=== PATIENT | female | born 2000 | race American Indian/Alaskan Native ===

== ENCOUNTER 2018-10-17 11:14 | Emergency (ER) | payer OTHER ==
[2018-10-17 11:22] VITALS: BP 148/88
--- NOTE | 2018-10-17 11:23 | Event Note ---
ED Screening Note Date of service: 10/17/18 Time: 11:21 ED Screening Note: 18 y/o female comes in for vaginal discharge time 1 week. Has a new sexually partner and wants to get STD check. This initial assessment/diagnostic orders/clinical plan/treatment(s) is/are subject to change based on patients health status, clinical progression and re- assessment by fellow clinical providers in the ED. Further treatment and workup at subsequent clinical providers discretion. Patient/guardian urged not to elope from the ED as their condition may be serious if not clinically assessed and managed. Initial orders include:
[2018-10-17 12:07] LABS: HCG Qualitative,Urine Negative (Negative)
[2018-10-17 12:09] LABS: Bilirubin,Urine NEG (Negative); Blood,Urine NEG (Negative); Color,Urine Yellow (Yellow); Mucus,Urine FEW /HPF; Protein,Urine <15 mg/dL mg/dL (Negative); Urobilinogen,Urine < 2.0 mg/dL (<2.0)
[2018-10-17] MEDS ORDERED: ROCEPHIN IM ONE (12:20)
[2018-10-17] MEDS ORDERED: ZITHROMAX PO ONE (12:20)
[2018-10-17] MEDS ORDERED: XYLOCAINE 1% MPF 5 mL INFILTRATI ONE (12:20)
--- NOTE | 2018-10-17 12:35 | Emergency Department Report ---
Chief Complaint: Urogenital-Female Stated Complaint: STD TESTING Time Seen by Provider: 10/17/18 11:20 - HPI History of Present Illness: This is a 18-year-old female who presents to the ED complaining of been exposed to chlamydia. Patient states that she has multiple sexual partners with both female and male. Patient states she was recently sexually active. Patient denies dysuria, pelvic pain. Patient states she does have a mild vaginal discharge. She denies fevers chills nausea vomiting. Patient states he treated - ROS Review of Systems: As noted in HPI - Exam Vital Signs: Vital Signs 10/17/18 11:20 Temperature 98.6 F Pulse Rate 109 H Respiratory 16 Rate Blood Pressure 148/88 O2 Sat by Pulse 98 Oximetry Physical Exam: Gen. AAO3 no acute distress Abdomen: Nontender to palpation. MSE screening note: Focused history and physical exam performed. Due to findings the following was ordered: ED Medical Decision Making - Medical Decision Making 18-year-old female presents with STD exposure. ED course: Urinalysis and urine test is negative Patient received 250 mg of Rocephin, azithromycin 1 g, Discussed with patient possible STD due to exposure. Discussed with patient findings and treatment Discussed prophylaxis treatment patient is to abstain from sex 7-10 days as treatment. Discussed patient partner knowledge and treatment. Discussed the follow-up with the health department for further STD testing. Patient's alert and oriented times 3. Vital signs are normal patient is in no acute discharge. Patient will be discharged home with instructions. ED Disposition for MSE Clinical Impression: Exposure to STD Disposition: DC-01 TO HOME OR SELFCARE Is pt being admited?: No Does the pt Need Aspirin: No Condition: Stable Instructions: Sexually Transmitted Diseases (ED), Safe Sex (ED) Additional Instructions: Make sure to follow up with the primary care physician as discussed. Take all your medications as you've been prescribed. If you have any worsening symptoms or develop new symptoms please return to ED immediately. Prescriptions: metroNIDAZOLE [Flagyl] 500 mg PO ONCE #4 tab Referrals: PRIMARY CARE, [Primary Care Provider] - 3-5 Days [facility] [Outside] - 3-5 Days [facility] [Outside] - 3-5 Days Forms: Accompanied Note, Work/School Release Form(ED) Time of Disposition: 12:54
== END 2018-10-17 13:07 | disposition home or self-care (01) ==
LOC: ED 11:14
DX: Z20.2 Contact with and (suspected) exposure to infections with a predominantly sexual mode of transmission (principal)
CPT/HCPCS: 81001; 81025; 96372; 99283; J0696

== ENCOUNTER 2018-12-01 17:30 | Emergency (ER) | payer SELFPAY ==
[2018-12-01 18:37] VITALS: BP 138/86
--- NOTE | 2018-12-01 18:38 | Event Note ---
ED Screening Note Date of service: 12/01/18 Time: 18:36 ED Screening Note: 18 y o female presents to Ed cc of vaginal d/c with odor This initial assessment/diagnostic orders/clinical plan/treatment(s) is/are subject to change based on patients health status, clinical progression and re-assessment by fellow clinical providers in the ED. Further treatment and workup at subsequent clinical providers discretion. Patient/guardian urged not to elope from the ED as their condition may be serious if not clinically assessed and managed. Initial orders include:
--- NOTE | 2018-12-01 18:45 | Emergency Department Report ---
Chief Complaint: Urogenital-Female Stated Complaint: POSS BV Time Seen by Provider: 12/01/18 18:36 - HPI History of Present Illness: 18 y o f presents with vag d/c x 2 days History of systems she has previous hx of BV sections. Patient states that this is similar to her previous symptoms with a mild vaginal discharge with no other States that she sex her preference is other females. She denies sex intercourse with males no symptoms She denies dysuria, pelv pain or abd pain - ROS Review of Systems: As noted in HPI - Exam Vital Signs: Vital Signs 12/01/18 18:36 Temperature 98.9 F Pulse Rate 76 Respiratory 18 Rate Blood Pressure 138/86 [Right] O2 Sat by Pulse 97 Oximetry Physical Exam: General: Alert and oriented 3, ambulatory in no acute distress Abdomen: Nontender to palpation no masses MSE screening note: Focused history and physical exam performed. Due to findings the following was ordered: ED Medical Decision Making - Medical Decision Making 18-year-old female presents with vaginitis Patient has had recurrent vaginitis is stenosis since symptoms. She is sexually active with male also normal risk of STDs. She denies any symptoms at this time. Patient will be discharged home with treatment Flagyl and referred to follow up with [facility] for follow-up. Vital signs are normal she is acute distress. ED Disposition for MSE Clinical Impression: Vaginitis Disposition: - TO HOME OR SELFCARE Is pt being admited?: No Does the pt Need Aspirin: No Condition: Stable Instructions: Bacterial Vaginosis (ED), Vaginitis (ED) Additional Instructions: follow up with installer [facility] assemblies take medication as discussed if you have any Prescriptions: Fluconazole [Diflucan TAB] 150 mg PO ONCE #1 tablet metroNIDAZOLE [Flagyl TAB] 500 mg PO BID #14 tab Referrals: [facility] [Provider Group] - 3-5 Days [facility] [Provider Group] - 3-5 Days [facility] [Provider Group] - 3-5 Days Forms: Accompanied Note, Work/School Release Form(ED) Time of Disposition: 18:50
== END 2018-12-01 19:14 | disposition home or self-care (01) ==
LOC: ED 17:30
DX: N76.0 Acute vaginitis (principal)